=== PATIENT | female | born 1955 | race Caucasian/White ===

== ENCOUNTER 2025-01-10 11:19 | Outpatient (AMB) | payer MEDICARE, BC, SELFPAY ==
--- NOTE | 2025-01-10 11:24 | MHC.OFFVIS ---
Vital Signs 01/10/25 11:25 Height 5 ft 3 in Intake Visit Reasons: SZ / Dementia Accompanied by: Spouse Allergies No Known Allergies Allergy (Verified 01/10/25 11:28) Medication List - Last Reconciled 01/10/25 by Sheila Salas CNP acetaminophen 325 mg PO Q8H PRN albuterol sulfate 90 mcg/actuation 2 puffs inhalation QID PRN cholecalciferol (vitamin D3) 125 mcg PO DAILY clonazepam 0.5 mg PO DAILY donepezil 10 mg PO DAILY escitalopram oxalate 10 mg PO DAILY levetiracetam 750 mg PO BID memantine 10 mg PO DAILY prednisone 20 mg PO DAILY quetiapine 50 mg PO BEDTIME vitamins A,C,T-pmuy-iaczsu 2,148 mcg-113 mg-45 mg-17.4mg (PreserVision AREDS) 1 tab PO BID HPI Comments Details: 69 yo woman with severe dementia diagnosed around [address] Berger in [place], and seizure disorder with an EEG at [facility] revealing multifocal epileptic discharges. She was living at assisted living facility in [place], [place]. She was here with her . She was doing okay. No seizures. She was able to recognize family. Appetite was okay. Mood and behavior was okay. Sleep was okay. She was primarily bed bound and used Latrell lift for transfers. She was incontinent and required assistance with all care, including feeding, dressing, and bathing. [facility] Medical History (Updated 01/10/25 @ 11:44 by Sheila Salas CNP) Severe dementia Alzheimer's dementia Seizure disorder Encephalopathy Review of Systems Const Denies chills, Denies daytime sleepiness, Denies difficulty sleeping, Denies fatigue, Denies fever(s), Denies frequent falls, Denies headache(s), Denies increased appetite, Denies poor appetite, Denies snoring, Denies weakness, Denies weight gain and Denies weight loss Eyes Denies loss of vision ENT Denies vertigo, Denies dizziness, Denies headache(s) and Denies neck pain Card Denies chest pain at rest, Denies chest pain with activity, Denies syncope, Denies leg edema, Denies palpitations, Denies dyspnea and Denies dyspnea on exertion Resp Denies cough, Denies dyspnea, Denies dyspnea on exertion and Denies snoring GI Denies abdominal pain, Denies constipation, Denies heartburn, Denies diarrhea and Denies nausea Denies urinary frequency, Denies urinary incontinence and Denies urinary urgency Musc Denies back pain, Denies myalgias, Denies arthralgias, Denies neck pain, Denies numbness, Denies stiffness and Denies tingling Neuro Denies vertigo, Denies dizziness, Denies syncope, Denies frequent falls, Denies headache(s), Denies lack of coordination, Denies loss of vision, Reports memory loss, Denies numbness, Denies Other visual disturbances, Denies restless legs, Denies seizure-like activity, Denies tingling, Denies paresthesias, Denies tremor(s) and Denies weakness Psych Denies anxiety, Denies depression, Reports memory loss, Denies visual hallucinations and Denies hallucinations Endo Denies fatigue and Denies palpitations Physical Exam Const Other: General Appearance:? normal, in no acute distress. Skin:? no rashes, no significant birthmarks. Heart:? S1, S2 normal, no murmurs. Lungs:? clear anteriorly and posteriorly. Extremities:? no edema. Psych:? alert, oriented, cognitive function intact, cooperative with exam. Neuro Other: Mental Status:?Alert and awake with decreased sp speech and fluency, and decreased comprehension. She was unable to follow commands or answer questions - she could not tell me her name, age, or who she was with Cranial Nerves:?Pupils are equal, round and reactive to light. Face is symmetrical. Facial sensations are normal. Hearing to bedside conversation is normal. Motor Examination:?Normal muscle tone, bulk and strength,?Deep tendon reflexes are 2+,?Plantars are flexor.? Sensory Exam:?....?.? Gait Exam: In wheelchair Extrapyramidal System:?No tremor, rigidity with normal facial expressions.? Involuntary Movements:?No tremors seen.? Speech:?As above Assessment & Plan Assessment & Plan (1) Alzheimer's dementia: Code(s): G30.9 - Alzheimer's disease, unspecified; F02.80 - Dementia in other diseases classified elsewhere, unspecified severity, without behavioral disturbance, psychotic disturbance, mood disturbance, and anxiety Category: Medical Qualifiers: Alzheimer's disease onset: unspecified onset Dementia severity: severe Dementia behavioral or psychological symptom: unspecified whether behavioral, psychotic, or mood disturbance or anxiety Qualified Code(s): G30.9 - Alzheimer's disease, unspecified; F02.C0 - Dementia in other diseases classified elsewhere, severe, without behavioral disturbance, psychotic disturbance, mood disturbance, and anxiety Plan: Refilled memantine 10mg 1 tablet orally once a day Refilled donepezil 10mg 1 tablet orally at bedtime Continue quetiapine 50mg 1 tablet orally at bedtime (2) Seizure disorder: Code(s): G40.909 - Epilepsy, unspecified, not intractable, without status epilepticus Category: Medical Plan: Continue levetiracetam 100mg/mL 7.5mL orally twice a day Plan . Medications: New memantine (Namenda) 10 mg PO QPM 30 tabs 5RF 30 days donepezil 10 mg PO BEDTIME 30 tabs 5RF 30 days Discontinued donepezil Discontinued Reason: Order 10 mg PO DAILY memantine Discontinued Reason: Order 10 mg PO DAILY Coding Level of Care Code Est Pt Level 4 (97141) Diagnoses Severe Alzheimer's dementia, unspecified timing of dementia onset, unspecified whether behavioral, psychotic, or mood disturbance or anxiety G30.9; F02.C0 Alzheimer's disease onset: unspecified onset Dementia severity: severe Dementia behavioral or psychological symptom: unspecified whether behavioral, psychotic, or mood disturbance or anxiety Seizure disorder G40.909
--- OUTSIDE RECORDS SUMMARY | 2025-01-10 12:08 | XMS_ITS | Clinical Summary ---
Author Organization [facility] Address [address] [place] [address] Care Team Providers Care Evening Sitter Name Role Phone Graeme Hines MD Primary Care Provider [phone] Allergies No known active allergies Medications Medication Sig Dispensed Refills Start Date End Date Status donepezil (ARICEPT) 10 MG tablet Take 1 tablet (10 mg total) by mouth every night at bedtime. 0 Active memantine (NAMENDA) 10 MG tablet Take 1 tablet (10 mg total) by mouth daily. 0 02/08/2017 Active clonazePAM (KlonoPIN) 1 MG tablet Take 0.5 mg by mouth every night at bedtime as needed. 0 10/22/2020 Active QUEtiapine (SEROquel) 25 MG tablet Take 2 tablets (50 mg total) by mouth 2 (two) times a day. 0 Active escitalopram (LEXAPRO) tablet 10 mg Take 1 tablet (10 mg total) by mouth daily. 0 Active Active Problems Problem Noted Date Diagnosed Date Sprain of calcaneofibular ligament of ankle, seq uela - left 05/17/2017 Sprain of anterior talofibul ar ligament of left ankle - left 05/17/2017 Achilles tendinitis, left leg 05/17/2017 Plantar fasciitis of left foot 05/17/2017 Arthropathy, lower leg 07/19/2016 Family History Medical History Relation Name Comments Heart disease Father Hypertension Father Heart disease Mother Relation Name Status Comments Father Mother Social History Tobacco Use Types Packs/Day Years Used Date Smoking Tobacco: Never Passive Smoke Exposure: Never Smokeless Tobacco: Never Alcohol Use Standard Drinks/Week Comments Yes 1 (1 standard drink = 0.6 oz pur e alcohol) 1 wine/week Sex and Gender Information Value Date Recorded Sex Assigned at Female 07/31/2019 3:00 PM EST Gender Identity Not on file Sexual Orientation Not on file Job Start Date Occupation Industry Not on file Not on file Not on file Last Filed Vital Signs Vital Sign Reading Time Taken Comments Blood Pressure 117/88 09/16/2023 12:06 PM EST Pulse 120 09/16/2023 12:06 PM EST Temperature 36.5 C (97.7 F) 09/16/2023 12:06 PM EST Respiratory Rate 16 09/16/2023 12:06 PM EST Oxygen Saturation 94% 09/16/2023 12:06 PM EST Inhaled Oxygen Concentration - - Weight 70.3 kg (155 lb) 09/16/2023 12:06 PM EST Height 160 cm (5' 3 ) 09/16/2023 12:06 PM EST Body Mass Index 27.46 09/16/2023 12:06 PM EST Plan of Treatment Health Maintenance Due Date Last Done Comments Hepatitis C Screening 1955 Depression Screening 1967 Preventative Health Evaluation 1973 DTap / Tdap / Td (1 - Tdap) 1974 Colon Cancer Screening (Colonoscopy) 01/23/2000 Breast Cancer Screening (Mammogram) 2005 Shingrix-Zoster Vaccine (1 of 2) 2005 Fall Risk Assessment 01/23/2020 Osteoporosis Screening (DEXA Scan) 01/23/2020 Pneumococcal Vaccine (1 of 1 - PCV) 01/23/2020 COVID-19 Vaccine ( season) 2024 04/13/2021, 09/12/2020, 08/22/2020 Influenza Vaccine (Season Ended) 2025 05/08/2021, 04/15/2020, 04/14/2019, Additional history exists RSV Adult > 60+ Yrs or (1 - 1-dose 75+ series) 2030 Hepatitis B Vaccines Aged Out No long er eligible based on patient's age to complete this topic RSV Ped < 20 months Aged Out No longe r eligible based on patient's age to complete this topic Advance Directives For more information, please contact: [phone] Documents on File Type Date Recorded 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 Care Teams Evening Sitter Relationship Specialty Start Date End Date Graeme Hines MD [address] [place] [address], [place] [address] PCP - General Internal Medicine 05/10/17
--- OUTSIDE RECORDS SUMMARY | 2025-01-10 12:08 | XMS_ITS | Clinical Summary ---
Author Organization [facility] Address [address] [place] [address] Care Team Providers Care Rural Mail Carrier Name Role Phone Steve Powell MD Primary Care Provider [phone] Medications DONEPEZIL HYDROCHLORIDE (ARICEPT) 10 MG tablet 0 10/24/2017 Active Nebivolol HCl (Bystolic) 10 MG tablet 0 10/24/2017 Active Memantine HCl (NAMENDA) 10 MG tablet 0 10/24/2017 Active FLUTICASONE PROPIONATE, NASAL, (FT Allergy Relief 24 HR) 50 MCG/ACT nasal spray 0 10/24/2017 Active raNITIdine HCl (ZANTAC) 75 MG tablet 0 10/24/2017 Active Active Problems Problem Noted Date Diagnosed Date Essential hypertension 10/24/2017 Dysphagia 10/24/2017 GERD (gastroesophageal reflux disease) 8 Family History Medical History Relation Name Comments Hypertension Other hypertension : Family History Relation Name Status Comments Other Social History Tobacco Use Types Packs/Day Years Used Date Smoking Tobacco: Never Assessed Comments:Smoking Status:Neve r a smoker Comments Unknown Sex and Gender Information Value Date Recorded Sex Assigned at Not on file Legal Sex Female 5:05 PM EDT Gender Identity Not on file Sexual Orientation Not on file Last Filed Vital Signs Vital Sign Reading Time Taken Comments Blood Pressure 154/84 10/24/2017 2:32 PM EDT Pulse 54 10/24/2017 2:32 PM EDT Temperature - - Respiratory Rate - - Oxygen Saturation - - Inhaled Oxygen Concentration - - Weight 62.1 kg (136 lb 15.9 oz) 10/24/2017 2:29 PM EDT Height 157.5 cm (5' 2 ) 10/24/2017 2:29 PM EDT Body Mass Index 25.06 10/24/2017 2:29 PM EDT Plan of Treatment Health Maintenance Due Date Last Done Comments Hepatitis C Screening 1955 DTaP/Tdap/Td (1 - Tdap) 1973 Mammogram/Breast Imaging 1995 Pneumococcal 50+ years (1 of 1 - PCV) 2005 Zoster (Shingrix) (1 of 2) 2005 Bone Density 01/23/2020 COVID-19 Vaccine (1 - 2023-2 5 season) 2024 Influenza (#1) 2025 RSV (1 - 1-dose 75+ series) 2030 HPV Vaccine Aged Out No longer eligi ble based on patient's age to complete this topic Hep A Aged Out No longer eligi ble based on patient's age to complete this topic Hep B Aged Out No longer eligi ble based on patient's age to complete this topic Hib Aged Out No longer eligi ble based on patient's age to complete this topic Meningococcal ACWY Aged Out No longer eligible based on patient's age to complete this topic Pap Smear Discontinued Zoster (Zostavax) Discontinued Care Teams Rural Mail Carrier Relationship Specialty Start Date End Date Steve Powell MD [address] [facility] [address] [place] [id number] PCP - General 02/14/23
--- OUTSIDE RECORDS SUMMARY | 2025-01-10 12:08 | XMS_ITS | Clinical Summary ---
Author Organization [facility] Address [address] [place] [id number] Care Team Providers Care Web Development Consultant Name Role Phone Graeme Hines MD Primary Care Provider [phone] Allergies No known active allergies Medications carvedilol (COREG) 6.25 MG tablet Take 6.25 mg by mouth 2 (two) times a day. 1 03/26/2019 Active clonazePAM (KlonoPIN) 1 MG tablet TAKE 1 TABLET BY MOUTH 3 TIMES PER DAY FOR 30 DAYS. 3 05/04/2019 Active donepezil (ARICEPT) 10 MG tablet Take 10 mg by mouth. Active escitalopram (LEXAPRO) 10 MG tablet 05/28/2019 Active memantine (NAMENDA) 10 MG tablet TAKE 1 TABLET BY MOUTH TWICE A DAY 02/08/2017 Active QUEtiapine (SEROquel) 50 MG tablet 06/01/2019 Active levETIRAcetam (KEPPRA) 100 mg/mL solution 08/14/2023 Acti ve Active Problems Problem Noted Date Diagnosed Date Hemorrhoids 09/10/2023 Abnormal findings on diagnos tic imaging of other abdominal regions, including retroperitoneum 10/12/2022 Gastroesophageal reflux disease 06/06/2019 Dysphagia 06/06/2019 Diverticulosis 06/06/2019 Family history of colon cancer 06/06/2019 Constipation 06/06/2019 Family History Medical History Relation Name Comments Heart attack Father Heart disease Father Hypertension Father Breast cancer Maternal Uncle Colon cancer Maternal Uncle Heart disease Mother Hypertension Mother Relation Name Status Comments Father Maternal Uncle Mother Social History Tobacco Use Types Packs/Day Years Used Date Smoking Tobacco: Never Smokeless Tobacco: Never Alcohol Use Standard Drinks/Week Comments Never 0 (1 standard drink = 0.6 oz pur e alcohol) AUDIT-C Answer Date Recorded Frequency of Alcohol Consumption Never 06/06/2019 Average Number of Drinks Not on file 019 Frequency of Binge Drinking Not on file 05/12 Comments Unknown Sex and Gender Information Value Date Recorded Sex Assigned at Not on file Legal Sex Female 6:18 PM EST Gender Identity Not on file Sexual Orientation Not on file Last Filed Vital Signs Vital Sign Reading Time Taken Comments Blood Pressure 122/70 09/06/2023 4:21 PM EST Pulse 90 09/06/2023 4:21 PM EST Temperature 36.1 C (97 F) 10/11/2022 1:45 PM EDT Respiratory Rate - - Oxygen Saturation 98% 01/27/2023 2:20 PM EDT Inhaled Oxygen Concentration - - Weight 83.9 kg (185 lb) 09/06/2023 4:21 PM EST Height 158.8 cm (5' 2.5 ) 09/06/2023 4:21 PM EST Body Mass Index 33.3 09/06/2023 4:21 PM EST Plan of Treatment Health Maintenance Due Date Last Done Comments Hepatitis C Virus Screening 1955 DTaP/Tdap/Td Vaccines (1 - Tdap) 1974 Mammogram 1995 Colonoscopy 01/23/2000 Pneumococcal Vaccines 50+ (1 of 1 - PCV) 2005 Zoster (Shingles) Vaccine (1 of 2) 2005 DXA Bone Density (Females,Ages 65 and older) 01/23/2020 COVID-19 Vaccine ( season) 2024 04/13/2021, 09/12/2020, 08/22/2020 Influenza Vaccine 02/08/2025 04/21/2023, , 04/15/2020, Additional history exists RSV Vaccine 60 years and older and Patients (1 - 1-dose 75+ series) 2030 Hepatitis B Vaccines Aged Out No long er eligible based on patient's age to complete this topic Insurance MEDICARE PART A & B [place] [id number] Advance Directives Documents on File Type Date Recorded 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
--- OUTSIDE RECORDS SUMMARY | 2025-01-10 12:08 | XMS_ITS ---
Author Name [facility] Organization Unknown Results Test Name/Text Value Interpretation Date Range Source FLUAV RNA Nph Ql CARLA+probe Negative 11/21/2024 [facility] SARS-CoV-2 RNA Resp Ql CARLA+probe Negative 11/21/2024 [facility] FLUBV RNA Nph Ql CARLA+probe Negative 11/21/2024 [facility] RSV RNA Resp Ql CARLA+probe Positive Abnormal 11/21/2024 [facility] pH Ur Strip.auto 6.0 Normal 09/16/2023 4.5 - 8 [facility] Nitrite Ur Ql Strip.auto NEGATIVE Normal 09/16/2023 - [facility] Ketones Ur Ql Strip.auto NEGATIVE Normal 09/16/2023 - [facility] Clarity Ur Refract.auto CLEAR Normal 09/16/2023 [facility] Prot Ur Ql Strip.auto NEGATIVE Normal 09/16/2023 - [facility] Leukocyte esterase Ur Ql Strip.auto NEGATIVE Normal 09/16/2023 - [facility] Glucose Ur Ql Strip.auto NEGATIVE Normal 09/16/2023 - [facility] Sp Gr Ur Strip.auto 1.025 Normal 09/16/2023 1.005 - 1 .03 [facility] Hgb Ur Ql Strip.auto NEGATIVE Normal 09/16/2023 - [facility] SPECIMEN SOURCE XXX URINE CLEAN CATCH Normal 09/16/2023 [facility] BNP BLD MCNC 15.0 pg/mL Normal 09/16/2023 0 - 100 [facility] RBC AUTO MCNC 33.4 g/dL Normal 09/16/2023 32 - 36 [facility] IMMATURE GRANULOCYTE, PERCENT 0.6 % Normal 09/16/2023 0 - 1 [facility] NUCLEATED RBC 0.0 % Normal 09/16/2023 0 - 1 [facility] WBC NO. BLD AUTO 6.7 K/uL Normal 09/16/2023 4 - 10.5 [facility] MCH RBC QN AUTO 31.4 pg Normal 09/16/2023 25 - 33 [facility] EOSINOPHIL NO. BLD AUTO 0.2 K/uL Normal 09/16/2023 0 - 0.5 [facility] BASOPHILS NFR BLD AUTO 0.6 % Normal 09/16/2023 0 - 2 [facility] PMV BLD AUTO 9.8 fL Normal 09/16/2023 7.4 - 11.4 [facility] RBC AUTO 94.1 fL Normal 09/16/2023 78 - 100 [facility] IMMATURE GRANULOCYTE, ABSOLUTE 0.04 k/uL Normal 09/16/2023 - 0.1 [facility] NEUTROPHILS NO. BLD AUTO 4.2 K/uL Normal 09/16/2023 1.8 - 7.8 [facility] NEUTROPHILS NFR BLD AUTO 62.5 % Normal 09/16/2023 44 - 74 [facility] RDW RBC AUTO RTO 13.1 % Normal 09/16/2023 12.1 - 16.2 [facility] RBC NO. BLD AUTO 4.04 M/uL Below low normal 09/16/2023 4.2 - 5.4 [facility] LYMPHOCYTES NO. BLD AUTO 1.5 K/uL Normal 09/16/2023 1 - 3.2 [facility] HGB BLD MCNC 12.7 g/dL Normal 09/16/2023 12.5 - 16 [facility] EOSINOPHIL NFR BLD AUTO 3.5 % Normal 09/16/2023 0 - 6 [facility] MONOCYTES NFR BLD AUTO 10.7 % Normal 09/16/2023 2 - 12 [facility] MONOCYTES NO. BLD AUTO 0.7 K/uL Normal 09/16/2023 0 - 0.8 [facility] HCT VFR BLD AUTO 38.0 % Normal 09/16/2023 37 - [address] [facility] LYMPHOCYTES NFR BLD AUTO 22.1 % Normal 09/16/2023 20 - 48 [facility] BASOPHILS IN BLOOD BY AUTOMATED COUNT 0.0 K/uL Normal 09/16/2023 0 - 0.2 [facility] PLATELET NO. BLD AUTO 255.0 K/uL Normal 09/16/2023 150 - 450 [facility] CHLORIDE SERPL SCNC 104.0 mmol/L Normal 09/16/2023 98 - 1 07 [facility] Glomerular filtration rate/1.73 sq M. predicted 80.0 Normal 09/16/2023 60 - [facility] BUN SERPL MCNC 18.0 mg/dL Above high normal 09/16/2023 7 - 1 7 [facility] POTASSIUM SERPL SCNC 4.1 mmol/L Normal 09/16/2023 3.5 - 5.1 [facility] ANION GAP SERPL SCNC 9.0 mmol/L Normal 09/16/2023 5 - 14 [facility] CREAT SERPL MCNC 0.8 mg/dL Normal 09/16/2023 0.5 - 1 [facility] HCO3 SER SCNC 24.0 mmol/L Normal 09/16/2023 24 - 32 [facility] GLUCOSE SERPL MCNC 141.0 mg/dL Normal 09/16/2023 70 - 199 [facility] SODIUM SERPL SCNC 137.0 mmol/L Normal 09/16/2023 135 - 14 5 [facility] CALCIUM SERPL MCNC 8.6 mg/dL Normal 09/16/2023 8.4 - 10.2 [facility] Troponin I SerPl HS-mCnc 3.0 ng/L Normal 09/16/2023 0 - 14 [facility] CK SERPL CCNC 26.0 U/L Below low normal 09/16/2023 30 - 135 [facility] IMMATURE GRANULOCYTE, PERCENT 0.6 % Normal 07/18/2023 0 - 1 [facility] MCV RBC AUTO 92.4 fL Normal 07/18/2023 78 - 100 [facility] WBC NO. BLD AUTO 4.9 K/uL Normal 07/18/2023 4 - 10.5 [facility] IMMATURE GRANULOCYTE, ABSOLUTE 0.03 k/uL Normal 07/18/2023 - 0.1 [facility] MCHC RBC AUTO MCNC 33.6 g/dL Normal 07/18/2023 32 - 36 [facility] HCT VFR BLD AUTO 39.9 % Normal 07/18/2023 37 - [address] [facility] RDW RBC AUTO RTO 12.3 % Normal 07/18/2023 12.1 - 16.2 [facility] EOSINOPHIL NFR BLD AUTO 6.2 % Above high normal 07/18/2023 0 - 6 [facility] RBC NO. BLD AUTO 4.32 M/uL Normal 07/18/2023 4.2 - 5.4 [facility] BASOPHILS IN BLOOD BY AUTOMATED COUNT 0.0 K/uL Normal 07/18/2023 0 - 0.2 [facility] PMV BLD AUTO 9.3 fL Normal 07/18/2023 7.4 - 11.4 [facility] NEUTROPHILS NFR BLD AUTO 45.1 % Normal 07/18/2023 44 - 74 [facility] EOSINOPHIL NO. BLD AUTO 0.3 K/uL Normal 07/18/2023 0 - 0.5 [facility] HGB BLD MCNC 13.4 g/dL Normal 07/18/2023 12.5 - 16 [facility] LYMPHOCYTES NO. BLD AUTO 1.7 K/uL Normal 07/18/2023 1 - 3.2 [facility] MONOCYTES NFR BLD AUTO 12.0 % Normal 07/18/2023 2 - 12 [facility] BASOPHILS NFR BLD AUTO 0.6 % Normal 07/18/2023 0 - 2 [facility] MCH RBC QN AUTO 31.0 pg Normal 07/18/2023 25 - 33 [facility] NUCLEATED RBC 0.0 % Normal 07/18/2023 0 - 1 [facility] LYMPHOCYTES NFR BLD AUTO 35.5 % Normal 07/18/2023 20 - 48 [facility] NEUTROPHILS NO. BLD AUTO 2.2 K/uL Normal 07/18/2023 1.8 - 7.8 [facility] MONOCYTES NO. BLD AUTO 0.6 K/uL Normal 07/18/2023 0 - 0.8 [facility] PLATELET NO. BLD AUTO 241.0 K/uL Normal 07/18/2023 150 - 450 [facility] HCO3 SER SCNC 30.0 mmol/L Normal 07/18/2023 24 - 32 [facility] CREAT SERPL MCNC 0.9 mg/dL Normal 07/18/2023 0.5 - 1 [facility] ANION GAP SERPL SCNC 6.0 mmol/L Normal 07/18/2023 5 - 14 [facility] BUN SERPL MCNC 9.0 mg/dL Normal 07/18/2023 7 - 17 [facility] CALCIUM SERPL MCNC 8.9 mg/dL Normal 07/18/2023 8.4 - 10.2 [facility] GLUCOSE SERPL MCNC 97.0 mg/dL Normal 07/18/2023 70 - 199 [facility] SODIUM SERPL SCNC 141.0 mmol/L Normal 07/18/2023 135 - 14 5 [facility] CHLORIDE SERPL SCNC 106.0 mmol/L Normal 07/18/2023 98 - 1 07 [facility] Glomerular filtration rate/1.73 sq M. predicted 70.0 Normal 07/18/2023 60 - [facility] POTASSIUM SERPL SCNC 4.0 mmol/L Normal 07/18/2023 3.5 - 5.1 [facility] History of Medication Use Medication Directions Dispensed Refills Start Date End Date Stat us Areds 07/31/2024 active Clonazepam 0.5mg Tablet 07/31/2024 active Donepezil Hydrochloride 10mg Tablet 07/31/2024 active Memantine Hydrochloride 10mg Tablet 07/31/2024 active Quetiapine Fumarate 50mg Tablet 07/31/2024 active levETIRAcetam (KEPPRA) 100 mg/mL solution 08/14/2023 active escitalopram (LEXAPRO) 10 MG tablet 05/28/2019 active carvedilol (COREG) 6.25 MG tablet Take 6.25 mg by mouth 2 (two) times a day. 03/26/2019 active memantine (NAMENDA) 10 MG tablet Take 1 tablet (10 mg total) by mouth daily. 02/08/2017 active memantine (NAMENDA) 10 MG tablet TAKE 1 TABLET BY MOUTH TWICE A DAY 02/08/2017 active donepezil (ARICEPT) 10 MG tablet Take 10 mg by mouth. active escitalopram (LEXAPRO) tablet 10 mg Take 1 tablet (10 mg total) by mouth daily. active Allergies Allergen Reaction Severity Comment Documented Date Source Statu s SULFAMETHOXAZOLE-TRIMETH OPRIM 11/21/2024 [facility] active .NO KNOWN DRUG ALLERGIES ENS_[facility] Problems Problem Status Onset Date Problem Type Date of Resolution Source Ingrowing nail active 2024-07-12 1 ProblemAct [facility] Cellulitis of right toe, paronychia active 2024-07-12 1 ProblemAct [facility] Seizure (HCC) active EncounterDiagnosisAct [facility] Chest pain, unspecified type active EncounterDiagnosisAct [facility] Family history of colon cancer active 2019-05-12 7 ProblemAct [facility] Arthropathy, lower leg active 9 ProblemAct [facility] Constipation active 2019-05-12 7 ProblemAct [facility] Sprain of calcaneofibular ligament of ankle, sequela active 7 ProblemAct [facility] Achilles tendinitis, left leg active 7 ProblemAct [facility] Hemorrhoids active 2 ProblemAct [facility] Sprain of anterior talofibular ligament of left ankle active 7 ProblemAct [facility] Weakness generalized active EncounterDiagnosisA ct [facility] Plantar fasciitis of left foot active 7 ProblemAct [facility] Diverticulosis active 2019-05-12 7 ProblemAct [facility] Dysphagia active 2019-05-12 7 ProblemAct [facility] Abnormal findings on diagnostic imaging of other abdominal regions, including retroperitoneum active 4 ProblemAct [facility] Gastroesophageal reflux disease active 2019-05-12 7 ProblemAct [facility] Encounters Encounter Type Encounter Reason Primary Diagnosis Location Date Emergency respitory infection wheezing Acute bronchiolitis due to respiratory syncytial virus [facility] 11/21/2024 [facility] 2024 Emergency Weakness Weakness [facility] 09/16/19 24 Ambulatory Gastro-esophageal reflux disease without esophagitis Gastro-esophageal reflux disease without esophagitis [facility] 09/06/2023 Emergency Residual hemorrhoidal skin tags Residual hemorrhoidal skin tags [facility] 07/18/2023 Ambulatory Gastro-esophagea l reflux disease with esophagitis, without bleeding [facility] [place] [facility] 01/27/2023 Ambulatory Abnormal finding s on diagnostic imaging of other abdominal regions, including retroperitoneum [facility] [place] 10/11/2022 Care Team Organization Name Specialty Phone Email Start Date End [facility] 11/21/2024 [facility] 11/21/2024 [facility] 11/21/2024 [facility] 08/12/2024 [facility] 08/01/2024 [facility] 08/01/19 25 [facility] 0 07/31/2023 [facility] 2023 [facility] 07/18/19 24 07/18/2023 [facility] Primary [facility] 10/11/2022 09/26/2024 [facility]
== END 2025-01-10 11:58 | disposition home or self-care (01) ==
LOC: HO.HSM 11:20
PROVIDERS: PCP Internal Medicine; Referring Provider Internal Medicine; Visit Provider Registered Nurse
DX: G30.9 Alzheimer's disease, unspecified (principal); F02.C0 Dementia in other diseases classified elsewhere, severe, without behavioral disturbance, psychotic disturbance, mood disturbance, and anxiety; G40.909 Epilepsy, unspecified, not intractable, without status epilepticus
CPT/HCPCS: 99214

== ENCOUNTER → 2025-01-10 11:19 | Outpatient (BNVA) | payer MEDICARE, BC, SELFPAY | PROVIDERS: PCP Internal Medicine; Referring Provider Internal Medicine; Visit Provider Registered Nurse | DX: G40.909 Epilepsy, unspecified, not intractable, without status epilepticus (principal); G30.9 Alzheimer's disease, unspecified; F02.C0 Dementia in other diseases classified elsewhere, severe, without behavioral disturbance, psychotic disturbance, mood disturbance, and anxiety; Z79.899 Other long term (current) drug therapy | CPT/HCPCS: 99212 ==